=== PATIENT | female | born 1940 | race African-American/Black ===

== ENCOUNTER 2018-11-11 16:41 | Inpatient (IN) | payer BC, MEDICAID, MEDICARE ==
[~2018-11-11] VITALS: Ht 160 cm; Wt 64.2 kg
[2018-11-11] MEDS ORDERED: ASPIRIN 81MG TABLET PO ONE (18:00)
[2018-11-11 18:55] LABS: BASOPHILS % 0.8 % (0.0-2.0); EOSINOPHILS % 0.9 % (0.0-5.0); HEMATOCRIT. 39.7 % (36.0-48.0); HEMOGLOBIN. 13.4 g/dL (12.0-16.0); LYMPHOCYTES % 25.9 % (20.0-50.0); MEAN CORPUSCULAR HEMOGLOBIN 32.7 pg (28.0-32.0); MEAN CORPUSCULAR VOLUME 97.4 fL (81.0-99.0); MEAN PLATELET VOLUME 8.9 fl (7.4-10.4); MONOCYTES % 10.5 % (2.0-8.0); NEUTROPHILS % 61.9 % (40.0-76.0); PLATELET 234 x1000/uL (130-400); RED BLOOD CELL COUNT 4.08 mill/uL (4.2-5.4); RED CELL DISTRIBUTION WIDTH 13.6 % (11.6-14.6)
[2018-11-11 19:00] LABS: CHLORIDE 109 mEq/L (98-107)
[2018-11-11 19:08] LABS: D-DIMER 3.16 mg/L FEU (<0.50); INR 1.2; PARTIAL THROMBOPLASTIN TIME 26.4 sec (23.4-31.0); PROTHROMBIN TIME 12.3 sec (9.6-11.0)
[2018-11-11] MEDS ORDERED: ENOXAPARIN 40MG/0.4ML SYR SUBCUT SCH (20:00)
[2018-11-11] MEDS ORDERED: NITROGLYCERIN 0.4MG TABLET SL SL PRN (20:00)
[2018-11-11] MEDS ORDERED: MAGNESIUM/ALUMINUM HYDROXIDE/SIMETHICONE 30ML UDC PO PRN (20:00)
[2018-11-11] MEDS ORDERED: GUAIFENESIN 200MG/10ML SUGAR FREE UDC PO PRN (20:00)
[2018-11-11] MEDS ORDERED: DOCUSATE SODIUM 100MG CAPSULE PO PRN (20:00)
[2018-11-11] MEDS ORDERED: ONDANSETRON HCL 4MG/2ML INJ IV PRN (20:00)
[2018-11-11] MEDS ORDERED: ACETAMINOPHEN 325MG TABLET PO PRN (20:00)
[2018-11-11] MEDS ORDERED: IPRATROPIUM/ALBUTEROL 0.5-3(2.5)MG/3ML NEB INH PRN (20:00)
[2018-11-11] MEDS ORDERED: CARBIDOPA/LEVODOPA 10/100MG TABLET PO ONE (20:15)
[2018-11-11] MEDS ORDERED: FAMOTIDINE 20MG TABLET PO SCH (21:00)
[2018-11-11] MEDS ORDERED: TRAMADOL 50MG TABLET PO PRN (21:47)
[2018-11-11] MEDS: METOPROLOL TARTRATE 25MG TABLET PO SCH (21:48)
[2018-11-11] MEDS ORDERED: MORPHINE SULFATE 2 MG/ML CPJ (NOT FOR IM USE) IV PRN (21:48)
[2018-11-11] MEDS: ENOXAPARIN 30MG/0.3ML SYR SUBCUT SCH (21:52)
[2018-11-11] MEDS ORDERED: NA PHOS,M-B/NA PHOS,DI-BA ENEMA 118ML PR PRN (22:00)
[2018-11-11] MEDS ORDERED: ZOLPIDEM TARTRATE 5MG TABLET PO PRN (22:00)
[2018-11-11 23:09] LABS: CREATINE KINASE 218 IU/L (26-192)
[2018-11-11 23:11] LABS: CREATINE KINASE MB FRACTION 2.4 ng/mL (0.5-3.6)
[2018-11-11 23:15] VITALS: BP 182/90
[2018-11-11 23:30] VITALS: BP 182/90
[2018-11-12] MEDS: CLONIDINE 0.1MG TABLET PO PRN ×2 (00:11→08:33)
[2018-11-12 04:00] VITALS: BP 166/83
[2018-11-12 06:34] LABS: CREATINE KINASE 203 IU/L (26-192)
[2018-11-12 06:36] LABS: CREATINE KINASE MB FRACTION 2.3 ng/mL (0.5-3.6)
[2018-11-12 08:00] VITALS: BP 189/91
[2018-11-12] MEDS: FAMOTIDINE 20MG TABLET PO SCH (08:33)
[2018-11-12] MEDS: ASPIRIN 325MG EC TABLET PO SCH (08:34)
[2018-11-12] MEDS: METOPROLOL TARTRATE 25MG TABLET PO SCH ×2 (08:34→21:00)
[2018-11-12 12:00] VITALS: BP 108/72
[2018-11-12 16:00] VITALS: BP 110/49
[2018-11-12] MEDS ORDERED: REGADENOSON 0.4 MG/5 ML IV NR (18:15)
[2018-11-12 20:00] VITALS: BP 127/63
[2018-11-12] MEDS ORDERED: CARB-32 PO (20:18)
[2018-11-12] MEDS ORDERED: CARB1TAB9 PO (20:18)
[2018-11-12] MEDS ORDERED: CARBIDOPA/LEVODOPA 25/100MG TABLET PO SCH (20:45)
[2018-11-12] MEDS: ENOXAPARIN 30MG/0.3ML SYR SUBCUT SCH (21:00)
[2018-11-13] VITALS: BP 170/72
[2018-11-13] MEDS: CLONIDINE 0.1MG TABLET PO PRN ×3 (00:36→08:35)
[2018-11-13 04:00] VITALS: BP 153/73
[2018-11-13 08:00] VITALS: BP 185/80
[2018-11-13] MEDS: METOPROLOL TARTRATE 25MG TABLET PO SCH (08:12)
[2018-11-13] MEDS: ASPIRIN 325MG EC TABLET PO SCH (08:34)
[2018-11-13] MEDS: FAMOTIDINE 20MG TABLET PO SCH (08:35)
[2018-11-13] MEDS ORDERED: CARBIDOPA/LEVODOPA 25/100MG TABLET PO SCH (09:00)
[2018-11-13 09:38] LABS: BASOPHILS % 1.1 % (0.0-2.0); EOSINOPHILS % 2.2 % (0.0-5.0); HEMATOCRIT. 38.1 % (36.0-48.0); LYMPHOCYTES % 44.9 % (20.0-50.0); MEAN CORPUSCULAR HEMOGLOBIN 32.8 pg (28.0-32.0); MEAN CORPUSCULAR VOLUME 95.9 fL (81.0-99.0); MEAN PLATELET VOLUME 9.1 fl (7.4-10.4); MONOCYTES % 9.9 % (2.0-8.0); NEUTROPHILS % 41.9 % (40.0-76.0); PLATELET 204 x1000/uL (130-400); RED BLOOD CELL COUNT 3.97 mill/uL (4.2-5.4); RED CELL DISTRIBUTION WIDTH 13.2 % (11.6-14.6)
[2018-11-13 10:36] LABS: VITAMIN B12 SERUM 1058 pg/mL (211-911)
[2018-11-13 10:38] LABS: TOTAL IRON BINDING CAPACITY 296 ug/dL (250-450)
[2018-11-13 11:51] VITALS: BP 112/85
[2018-11-13 12:00] VITALS: BP 103/52
[2018-11-13 15:05] LABS: FERRITIN 81 ng/mL (10-291)
== END 2018-11-13 14:59 | disposition home or self-care (01) | DRG 313 ==
LOC: ER 18:16 → SUPCPDRO 19:53 → 5WST 19:53 → EDBEDREQ 19:59 → EDBEDREQTM 19:59 → ENRESERV 21:34
PROVIDERS: ADMIT Ophthalmology; ATTEND Ophthalmology
DX: R07.89 Other chest pain (principal); N17.9 Acute kidney failure, unspecified; M62.82 Rhabdomyolysis; G20 Parkinson's disease; I10 Essential (primary) hypertension; Z96.619 Presence of unspecified artificial shoulder joint; Z88.0 Allergy status to penicillin; Z79.899 Other long term (current) drug therapy; Z79.82 Long term (current) use of aspirin
CPT/HCPCS: 36415; 71045; 78582; 80061; 82550; 82553; 82607; 82728; 83036; 83540; 83550; 83880; 84443; 84484; 85379; 93005; 93306; 93970; 96372; 97162; 99285; A9558; J1650